=== PATIENT | female | born 1985 | race African-American/Black ===

== ENCOUNTER 2019-08-08 18:22 | Emergency (ER) | payer BC, SELFPAY ==
--- NOTE | ~2019-08-08 | CT_ITS ---
EXAMINATION: CT BRAIN W/O DATE: 08/08/2019 21:38 INDICATION: Headache. TECHNIQUE: Computed tomography (CT) of the head was performed without intravenous contrast. The dose- length product was 605.33 mGy-cm. The mA was adjusted according to patient size. Iterative reconstruc tion technique was employed. COMPARISON: No prior studies for comparison. FINDINGS: Normal brain parenchymal volume for age. Normal edouard-white differentiation. No acute intrac ranial hemorrhage, infarction, mass or mass effect. No ventriculomegaly or midline shift. Midline sagittal images demonstrate a normal corpus callosum, c raniovertebral junction and sella turcica. Basilar cisterns are patent. Paranasal sinuses and mastoids are pneumatized. No depressed skull fractures. IMPRESSION: 1. No acute intracranial abnormality. Reviewed, dictated and finalized at location A. R WORKER
[2019-08-08 18:25] VITALS: BP 157/101; PULSE 113; RESP 16; TEMP 37.2; O2SAT 100
--- NOTE | 2019-08-08 20:48 | ED.HA ---
HPI - Headache General Chief Complaint: Headache Stated Complaint: sharp head and neck pain Time Seen by Provider: 08/08/19 20:45 Source: patient Mode of arrival: ambulatory Limitations: no limitations History of Present Illness HPI Narrative: The pt is a 34 y/o female who presents to the ED c/o sharp occipital MCCRARY onset 3 days ago. She states that the pain seems to radiate to the neck and frontal head. Pt notes that she has not been around anyone ill. She states that she tried Naproxen around 1400 today without relief. Pt reports generalized weakness, resolved sore throat, congestion, resolved rhinorrhea, sinus pressure/drainage, and her neck feeling warm. She denies fever, N/V/D, and constipation. Pt also notes that she does not smoke cigarettes or drink alcohol. MD elicited complaint: headache Onset (ago): day(s) (3) Location: occipital (Radiating to frontal head and neck) Quality & Timing: sharp Relieving factors: nothing Associated symptoms: weakness (Generalized) and other (Sore throat (Resolved), congestion, Rhinorrhea (Resolved), sinus pressure/drainage, neck feeling warm) Treatments prior to arrival: ibuprofen Related Data Home Medications Medication Instructions Recorded Confirmed Fish Oil 05/11/19 Vitamin D 05/11/19 phentermine mg 05/11/19 Allergies Allergy/AdvReac Type Severity Reaction Status Date / Time No Known Allergies Allergy Verified 08/08/19 21:19 Review of Systems Review of Systems: All systems reviewed & are unremarkable except as noted in HPI and below Constitutional: Constitutional: Denies fever(s), Reports weakness (Generalized) and Reports other (Neck feels warm) ENT: Reports nasal congestion, Reports nasal discharge (Rhinorrhea, Resolved), Reports sinus pressure, Reports sore throat (Resolved) and Reports other (Sinus drainage) Gastrointestinal: Gastrointestinal: Denies constipation, Denies diarrhea, Denies nausea and Denies vomiting Neurologic: Reports headache(s) (Sharp, occipital radiating to the neck and frontal head) [facility] Past Medical History Medical History (Updated 08/08/19 @ 22:01 by Jyoti Abreu MD) Asthma Surgical History Surgical History (Updated 05/11/19 @ 18:36 by Liyah Gerard, BUSINESS ASSOCIATE, ) H/O tubal ligation Social History Social History (Updated 08/08/19 @ 21:13 by El Archer Smoking status: Never smoker Comments PCP: Dr. Navarro Exam Narrative: Exam Narrative: General appearance: Well-developed, well-nourished Skin: Normal color Head: Normocephalic, nontraumatic Eyes: Clear conjunctiva ENT: Oropharynx normal, ears normal, nose normal Neck: Supple, nontender Chest and respiratory: Airway patent, no respiratory distress, no accessory muscle use Heart: Regular rate/rhythm Abdomen: Soft, nontender, no organomegaly, quiet bowel sounds Vascular: Normal peripheral pulses, normal capillary refill. Musculoskeletal: Normal range of motion, nontender back Neurologic: Alert and oriented ?3, LINING MARKER is normal as tested, no gross motor deficit Course Course Emergency Course: Viral infection is my concern. Patient did search [employer] for her symptoms, extremely anxious and worried about brain tumor, bleeding. Labs, CT head, UA ordered. Further plan to follow Stable [employer] MECH[employer]IC/PA Physician Supervision Viral infection Vital Signs Vital signs: Vital Signs Temperature 37.2 C 08/08/19 18:25 Pulse Rate 113 H 08/08/19 18:25 Respiratory Rate 16 08/08/19 18:25 Blood Pressure 157/101 H 08/08/19 18:25 Pulse Oximetry 100 08/08/19 18:25 Temperature 36.6 C 08/08/19 21:14 Pulse Rate 97 08/08/19 21:14 Respiratory Rate 16 08/08/19 21:14 Blood Pressure 136/105
[2019-08-08 21:14] VITALS: BP 136/105; PULSE 97; RESP 16; TEMP 36.6; O2SAT 100
[2019-08-08 21:32] LABS: Basophils Percent Auto 0.4 % (0.2-1.2); Eosinophils Absolute Auto 0.1 K/mm3 (0-0.3); Eosinophils Percent Auto 2.1 % (0-4.4); Hematocrit 42.6 % (37.0-47.0); Hemoglobin 13.6 g/dL (12.0-15.0); Lymphocytes Absolute Auto 1.86 K/mm3 (0.9-3.2); Lymphocytes Percent Auto 39.2 % (18.3-44.2); Mean Corpuscular HGB Conc 31.9 g/dl (32-36); Mean Corpuscular Hemoglobin 29.6 pg (26-34); Mean Corpuscular Volume 92.8 fl (80-100); Mean Platelet Volume 11.6 fl (7.4-10.4); Monocytes Absolute Auto 0.7 K/mm3 (0.1-0.6); Monocytes Percent Auto 13.7 % (2.6-8.5); Neutrophils Absolute Auto 2.1 K/mm3 (1.3-6.7); Neutrophils Percent Auto 44.6 % (45.5-73.1); Platelet Count Result 327 k/mm3 (150-375); Red Blood Count 4.59 M/mm3 (4.2-5.4); Red Cell Distribution Width 13.7 % (11.5-14.5); White Blood Count 4.7 K/mm3 (4.5-10.0)
[2019-08-08 21:44] LABS: Alanine Aminotransferase 19 U/L (4-35); Albumin Level 4.5 g/dL (3.5-5.1); Alkaline Phosphatase 57 U/L (38-126); Aspartate Amino Transferase 22 U/L (14-36); Bilirubin,Total 0.3 mg/dL (0.2-1.3); Blood Urea Nitrogen 10 mg/dL (7-17); Calcium 9.6 mg/dL (8.4-10.2); Carbon Dioxide 27 mmol/L (22-30); Chloride 100 mmol/L (98-107); Estimated CRCL calculation 99 ml/min; Estimated Glomerular Filt Rate > 60; Glucose 97 mg/dL (65-105); Potassium 3.8 mmol/L (3.4-5.0); Sodium 139 mmol/L (137-145)
[2019-08-08] MEDS: ACETAMINOPHEN 325 MG TABLET 650 MG PO (21:49)
[2019-08-08] MEDS: IBUPROFEN 600 MG TABLET PO (21:49)
[2019-08-08 22:19] VITALS: TEMP 36.3
[2019-08-08 22:46] VITALS: BP 144/102; PULSE 89; RESP 16; TEMP 36.3; O2SAT 99
== END 2019-08-08 22:49 | disposition home or self-care (01) ==
PROVIDERS: Emergency Provider Emergency Medicine; PCP Family Medicine
DX: B34.9 Viral infection, unspecified (principal); R51 Headache
CPT/HCPCS: 36415; 70450; 80053; 85025; 99284; A9270

== ENCOUNTER 2019-08-14 16:02 | Outpatient (CLI) | payer BC, SELFPAY ==
[2019-08-14 16:40] LABS: Hemoglobin A1C 5.6 % (<5.7)
== END 2019-08-14 16:03 | disposition home or self-care (01) ==
LOC: ANHLAB 16:03
PROVIDERS: PCP Family Medicine; Visit Provider Family Medicine
DX: R73.03 Prediabetes (principal)
CPT/HCPCS: 36415; 83036

== ENCOUNTER 2020-08-04 17:10 | Emergency (ER) | payer BC, SELFPAY ==
--- NOTE | 2020-08-04 17:12 | ED.GENADULT ---
HPI - General Adult General Chief complaint: Ear Stated complaint: Ear Pain Time Seen by Provider: 08/04/20 17:12 Source: patient Mode of arrival: ambulatory Limitations: no limitations History of Present Illness HPI narrative: 35-year-old female patient presents to the [facility] with complaints of right ear pain for the past 5 days has gotten increasingly worse today. Patient states she does have history of allergies and has had a runny nose, watery eyes and sneezing recently. Patient states she does take Zyrtec daily and also started taking a sinus medication but has not relieved her ear pain. Patient denies any discharge from the ear. Denies any fevers, body aches or chills. Related Data Home Medications Medication Instructions Recorded Confirmed phentermine mg 05/11/19 Allergies Allergy/AdvReac Type Severity Reaction Status Date / Time No Known Allergies Allergy Verified 08/08/19 21:19 Review of Systems Review of Systems: Narrative: CONSTITUTIONAL: Denies fever, chills, or sweats. EYES: Denies visual changes, redness, or discharge. ENT: Denies rhinorrhea, congestion, sore throat, positive right otalgia. CARDIOVASCULAR: Denies chest pain, palpitations, or edema. RESPIRATORY: Denies cough or dyspnea. GASTROINTESTINAL: Denies abdominal pain, nausea, vomiting, or diarrhea. GENITOURINARY: Denies dysuria or hematuria. SKIN: Denies rash or itching. MUSCULOSKELETAL: Denies back pain, joint pain, or myalgia. NEUROLOGIC: Denies headache, numbness, or weakness. PSYCHIATRIC: Denies anxiety or depression. [facility] Past Medical History Medical History Asthma Surgical History Surgical History H/O tubal ligation Family History Family History (Updated 08/04/20 @ 17:14 by ALDEN Sahu) Other Diabetes mellitus Foster care (status) Heart disease Hypertension Social History Social History Smoking status: Never smoker Comments At the time of my signature I agree with nursing past medical history, surgical, social, and family history. There is no relevant family history pertinent to the presenting complaint. Exam Narrative: Exam Narrative: GENERAL: Well-appearing, well-nourished, and in no acute distress. HEAD: Normocephalic, atraumatic. EYES: PERRLA and EOMI. ENT: Nares clear, no rhinorrhea or epistaxis. Mucous membranes moist. Patient does have some fluid with some bulging noted behind the right eardrum. No foreign bodies noted to the canal. NECK: Supple. No lymphadenopathy CHEST: Clear to auscultation. No respiratory distress. HEART: Regular rate and rhythm. No murmur heard. Normal peripheral pulses. ABDOMEN: Soft, nontender, nondistended, normal active bowel sounds. EXTREMITIES: Normal range of motion. No edema. SKIN: Warm, dry, no rash. NEURO: No focal deficits. Alert and oriented x3. Course Vital Signs Vital signs: Vital Signs Temperature 37.2 C 08/04/20 17:25 Pulse Rate 18 L 08/04/20 17:25 Respiratory Rate 18 08/04/20 17:25 Blood Pressure 161/107 H 08/04/20 17:25 Pulse Oximetry 100 08/04/20 17:25 Temperature 37.2 C 08/04/20 17:25 Pulse Rate 18 L 08/04/20 17:25 Respiratory Rate 18 08/04/20 17:25 Blood Pressure 161/107 H 08/04/20 17:25 Pulse Oximetry 100 08/04/20 17:25 Vital signs reviewed The patient has been informed that they may have pre-hypertension or Hypertension based on a BP reading in the department. I recommend that the patient call the primary care provider listed on their discharge instructions or a physician of their choice this week to arrange follow up for further evaluation of possible pre-hypertension or Hypertension Medical Decision Making Differential Diagnosis Differential Diagnosis: Differential diagnosis: Otitis media, otitis externa, perforated TM, infection of th
[2020-08-04 17:25] VITALS: BP 161/107; PULSE 18; RESP 18; TEMP 37.2; O2SAT 100
== END 2020-08-04 17:43 | disposition home or self-care (01) ==
PROVIDERS: Emergency Provider Nurse Practitioner Family; PCP Family Medicine
DX: H65.191 Other acute nonsuppurative otitis media, right ear (principal); J45.909 Unspecified asthma, uncomplicated
CPT/HCPCS: 99213; G0463

== ENCOUNTER 2020-12-18 15:46 | Outpatient (CLI) | payer BC, SELFPAY ==
--- NOTE | ~2020-12-18 | CT_ITS ---
EXAMINATION: CT sinus wo con EXAM DATE: 12/18/2020 15:58 INDICATION: Chronic sinusitis. TECHNIQUE: Spiral CT of the sinuses was acquired in the axial plane. Coronal and sagittal reformatte d images were also reviewed. The dose-length product (DLP) for this examination was 261.43 mGy-cm. Iterative reconstruction (ASIR) was used as dose reduction technique. Comparison is made to prior exa mination from 08/08/2019. FINDINGS: The sinuses are normally developed. The sinuses are well aerated. The ostiomeatal unit s are patent. There is no sinus wall thickening. There is mild leftward nasal septal deviation. Th e mastoid air cells and middle ears are well aerated. External auditory canals are patent. The or bits and visualized soft tissues are unremarkable. Probable congenital incomplete fusion left anter ior arch of C1, and left posterior arch not identified, but C1 was incompletely imaged. IMPRESSION: 1. Mild leftward nasal septal deviation. 2. Clear sinuses. 3. Congenital complete C1 fusion. Reviewed, dictated and finalized at location A.
== END 2020-12-18 15:47 ==
LOC: MICIMG 15:47
PROVIDERS: Visit Provider Allergy & Immunology
DX: J32.9 Chronic sinusitis, unspecified (principal); Z98.1 Arthrodesis status
CPT/HCPCS: 70486

== ENCOUNTER 2022-05-19 19:52 | Emergency (ER) | payer OTHER, BC, SELFPAY ==
--- NOTE | 2022-05-19 20:00 | ED.NECK ---
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 She reports the pain did not start right away, it did not start until after the incident. She reports pain between the right-sided neck and shoulder. Reports pain is worse when she turns her head to the right and moves her right shoulder. She denies intervention, she came here from work MD complaint: neck pain Related Data Home Medications Medication Instructions Recorded Confirmed phentermine 37.5 mg tablet mg 05/11/19 Allergies Allergy/AdvReac Type Severity Reaction Status Date / Time No Known Allergies Allergy Verified 05/19/22 19:56 Review of Systems Review of Systems: CONSTITUTIONAL: Denies malaise, chills, sweats, or fever. CARDIOVASCULAR: Denies chest pain, palpitations, or edema. RESPIRATORY: Denies cough or dyspnea. SKIN: Denies rash or itching, bruising, redness, swelling. MUSCULOSKELETAL: Reports pain between the right neck and shoulder NEUROLOGIC: Denies numbness, weakness All systems reviewed & are unremarkable except as noted in HPI and below PMFSH Past Medical History Medical History Asthma Surgical History Surgical History H/O tubal ligation Family History Family History (Updated 08/04/20 @ 17:14 by ALDEN Sahu) Other Diabetes mellitus Foster care (status) Heart disease Hypertension Social History Social History Smoking status: Never smoker Comments At time of signature, agree with nursing past medical, surgical, social and family history. There is no relevant family history pertinent to the presenting complaint Exam Narrative: GENERAL: Well-appearing, well-nourished, and in no acute distress. HEAD: Normocephalic, atraumatic. EYES: PERRLA and EOMI. NECK: Supple. No lymphadenopathy. CHEST: Clear to auscultation. No respiratory distress. HEART: Regular rate and rhythm. Distal pulses palpable and equal, cap refill <3 seconds ABDOMEN: Soft, nontender, nondistended, normal active bowel sounds, no palpable or pulsatile masses. No CVA tenderness MUSCULOSKELETAL: Normal range of motion and strength in all extremities. Normal sensation in dermatomal distributions with sensitivity to light touch and pain. No midline neck tenderness to palpation. No paraspinal tenderness. Transfers from sitting to standing. Limited range of motion rotating to the right, trapezius pain with moving the right shoulder SKIN: Warm, dry, no rash. No ecchymosis, erythema, open wounds to back. NEURO: No focal deficits. Alert and oriented x3. Normal gait. PSYCH: Normal mood and affect Course Course Emergency Course: Patient is aware of diagnosis, understands and agrees to treatment plan. Anticipatory guidance given. Patient agrees to follow-up as directed and is aware of reasons to seek care at the emergency department. Portions of this record may have been created with voice recognition software Level of Care: Express Care Visit Vital Signs Vital signs: Reviewed. MDM - Neck Pain/Injury MDM Narrative Medical decision making narrative: Patients injury and pain is consistent with musculoskeletal etiology. No signs of neurological or vascular compromise on exam. Compartments and tissues are soft without signs of compartment syndrome. Pain is felt appropriate for further evaluation on an outpatient basis. Critical Care Time Critical Care Time Critical Care Time: No Discharge Plan Discharge Clinical Impression: Strain of neck muscle Patient D
[2022-05-19 20:02] VITALS: BP 156/102; PULSE 105; RESP 18; TEMP 37.3; O2SAT 99
== END 2022-05-19 20:12 | disposition home or self-care (01) ==
PROVIDERS: Emergency Provider Nurse Practitioner
DX: S16.1XXA Strain of muscle, fascia and tendon at neck level, initial encounter (principal); X58.XXXA Exposure to other specified factors, initial encounter; Y99.0 Civilian activity done for income or pay; J45.909 Unspecified asthma, uncomplicated
CPT/HCPCS: 99213; G0463

== ENCOUNTER 2022-09-13 19:41 | Emergency (ER) | payer BC, SELFPAY ==
[2022-09-13 19:50] VITALS: BP 159/102; PULSE 107; RESP 16; TEMP 36.3; O2SAT 100
--- NOTE | 2022-09-13 19:59 | ED.GENADULT ---
HPI - General Adult General Chief complaint: Unspecified Stated complaint: High B/P Time Seen by Provider: 09/13/22 19:42 Source: patient Mode of arrival: ambulatory Limitations: no limitations History of Present Illness HPI narrative: Juan Jose is a 37-year-old female patient presenting to the clinic today with complaints of high blood pressure today while at work. She reports that her blood pressure was over 200 systolic while at work and she had a headache and felt fatigued. States she went to the nurse where they confirmed that her blood pressure was over 200. She currently denies any dizziness, headache, shortness of breath, chest pain, or visual changes. Related Data Home Medications Medication Instructions Recorded Confirmed No Home Medications 09/13/22 09/13/22 Allergies Allergy/AdvReac Type Severity Reaction Status Date / Time No Known Allergies Allergy Verified 05/19/22 19:56 Review of Systems Review of Systems: Pertinent positives per HPI. Patient denies any fever, chills, rash, headache, visual changes, dizziness, cough, runny nose, sore throat, shortness of breath, chest pain, palpitations, nausea, vomiting, diarrhea, constipation, abdominal pain, or any urinary issues. [facility] Past Medical History Medical History Asthma Surgical History Surgical History H/O tubal ligation Family History Family History Other Diabetes mellitus Foster care (status) Heart disease Hypertension Social History Social History Smoking status: Never smoker Comments At the time of my signature, I reviewed and agree with the nursing past medical, surgical, social, and family history. There is no relevant family history pertinent to the patient complaint. Exam Narrative: General: Well-developed, well nourished, in no apparent distress Head: Normocephalic, atraumatic. Cardio: Regular rate and rhythm, s1 and s2 normal, no murmur appreciated. Resp: Clear to auscultation bilaterally, no rhonchi, rales, wheezing or rubs. Extremities: No deformity, no edema, no cyanosis, capillary refill less than 2 seconds, peripheral pulses palpable and strong. Integumentary: [place], warm, and dry, intact without lesion, no rashes. Course Course Emergency Course: Portions of this record may have been created with voice recognition software. Level of Care: Express Care Visit Vital Signs Vital signs: Vital Signs Temperature 36.3 C L 09/13/22 19:50 Pulse Rate 107 H 09/13/22 19:50 Respiratory Rate 16 09/13/22 19:50 Blood Pressure 159/102 H 09/13/22 19:50 Pulse Oximetry 100 09/13/22 19:50 Oxygen Delivery Room Air 09/13/22 19:50 Temperature 36.3 C L 09/13/22 19:50 Pulse Rate 107 H 09/13/22 19:50 Respiratory Rate 16 09/13/22 19:50 Blood Pressure 159/102 H 09/13/22 19:50 Pulse Oximetry 100 09/13/22 19:50 Oxygen Delivery Room Air 09/13/22 19:50 Vital signs reviewed Transfer Transfered to: [facility] Transportation: Other (Private car) Transfer rationale: Hypertension urgency, protein urea Accepting physician: Shelby ROY Transfer comments: Transfer via private car Medical Decision Making MDM Narrative Medical decision making narrative: At the time of visit patient is resting comfortably on the exam table. Blood pressure was obtained and was 159/102. EKG was performed shows sinus rhythm with a nonspecific T-wave abnormality. Heart rate is 88 beats per minute without ectopy. Urinalysis was performed and is positive for 2+ protein. Recommend transfer to the ER for further evaluation and patient voiced understanding and agrees. Contacted Allyson physician's horticultural nursery assistant at [facility] and she accepts patient for transfer. Patient to be transferred
--- NOTE | 2022-09-13 20:03 | ECG_ITS ---
Measurements Intervals [place] Rate: 88 P: 73 VT: 153 QRS: 24 QRSD: 85 T: 67 QT: 366 QTc: 443 Interpretive Statements SINUS RHYTHM NONSPECIFIC T-WAVE ABNORMALITY- LAT/HIGH LAT LEADS BORDERLINE ECG COMPARED TO ECG 04/05/2019 08:22:46 T-WAVE ABNORMALITY NOW PRESENT Electronically Signed On 09-14-2022 8:14:36 CDT by Olvin Du D.O.
== END 2022-09-13 20:25 | disposition home or self-care (01) ==
PROVIDERS: Emergency Provider Nurse Practitioner Family; PCP Family Medicine
DX: I16.0 Hypertensive urgency (principal); R80.9 Proteinuria, unspecified; J45.909 Unspecified asthma, uncomplicated
CPT/HCPCS: 81003; 93005; 99213; G0463

== ENCOUNTER 2024-01-03 14:41 | Outpatient (CLI) | payer BC, SELFPAY ==
--- NOTE | ~2024-01-03 | MM_ITS ---
EXAMINATION: MM screening [facility] HISTORY: Screening TECHNIQUE: Craniocaudal and mediolateral oblique 3-D tomosynthesis images were obtained and synthetic 2-D images were generated. CAD analysis was submitted and interpreted. COMPARISON: No prior mammogram is available for comparison at this institution. BREAST PARENCHYMAL COMPOSITION: Not dense: There are scattered areas of fibroglandular density. FINDINGS: There is no evidence of suspicious mass, calcification, or architectural distortion to sugg est malignancy in either breast. There has been no suspicious interval change. IMPRESSION: 1. No mammographic evidence of malignancy. 2. Recommend routine screening mammography in one year. BI-RADS Category 1: Negative Reviewed, dictated and finalized at location B.
== END 2024-01-03 14:42 ==
LOC: MICIMG 14:45
PROVIDERS: Visit Provider Obstetrics & Gynecology
DX: Z12.31 Encounter for screening mammogram for malignant neoplasm of breast (principal)
CPT/HCPCS: 77063; 77067